=== PATIENT | female | born 1930 | race Two or more races ===

== ENCOUNTER 2018-01-06 14:01 | Observation (INO) | payer MEDICARE, OTHER ==
--- NOTE | 2018-01-06 14:41 | PDOC ---
Attending Attestation - HPI HPI: This patient is an 87 year old female with PMHx of dementia, NIDDM, HTN, hypercholesterolemia, and frequent UTIs who was BIBA from home and presents with her aide & daughter? for altered mental status. noted At baseline her aide reports that patient is talkative and ambulatory however this morning she states that the patient was not responding to questions and seemed out of it. Her aide also notes that patients urine was foul-smelling this morning. Last know well was last night as per patients weekday aide. Denies recent changes in medications. Denies h/o MIs. Denies taking any blood thinners. Surgical Hx: right cataract <Shona Burris - Last Filed: 01/06/18 14:59> - Resident Resident Name: Nancy Zelaya - Physicial Exam PE: 01/06/18 17:14 Agree with resident exam. PAtient is lethargic but arousable with tactile stimulation. Patient awakens when stimulated and mumbles incomprehensible words. Does not follow commands but moves both upper extremities. lungs are clear. abdomen is soft, non tender and non distended. - Critical Care Time Total Critical Care Time: 30 Critical Care Statement: The care of this patient involved high complexity decision making to prevent further life threatening deterioration of the patient 's condition and/or to evaluate & treat vital organ system(s) failure or risk of failure. - Medical Decision Making 01/06/18 17:21 Pt presents to the ED with altered mental status. Differential included sepsis , intracranial mass or bleed, electrolyte disturbance. CT head is negative. LAbs show elevated lactate. Unclear source of infection. Will start broad spectrum antibiotics and admit to medicine. <Tania Santoyo - Last Filed: 01/06/18 17:23>
[2018-01-06 14:56] LABS: BASO % 0.8 % (0-2.0); EOS % 2.6 % (0-4.5); HEMATOCRIT 40.4 % (32.4-45.2); HEMOGLOBIN 13.3 GM/dL (10.7-15.3); LYMPH % 42.2 % (8-40); MCH 30.4 pg (25.7-33.7); MEAN CELL VOLUME 92.2 fl (80-96); MEAN PLT VOLUME 9.7 fl (7.5-11.1); MONO % 11.5 % (3.8-10.2); NEUT % 42.9 % (42.8-82.8); PLATELET COUNT 184 K/MM3 (134-434); RBC 4.38 M/mm3 (3.60-5.2); RDW 14.6 % (11.6-15.6); WHITE BLOOD COUNT 5.5 K/mm3 (4.0-10.0)
[2018-01-06 15:07] LABS: INR 1.04 (0.83-1.09); PROTHROMBIN TIME (PATIENT) 12.3 SEC (9.7-13.0)
[2018-01-06 15:10] LABS: ACTIVATED PTT 27.4 SECONDS (25.2-36.5)
[2018-01-06 15:21] LABS: ALK PHOS 86 U/L (45-117); ANION GAP 6 MMOL/L (8-16); BILIRUBIN,TOTAL 0.3 mg/dL (0.2-1); BLOOD UREA NITROGEN 19 mg/dL (7-18); CALCIUM 9.1 mg/dL (8.5-10.1); CHLORIDE 109 mmol/L (98-107); CO2 26 mmol/L (21-32); CREATININE 0.7 mg/dL (0.55-1.3); GLUCOSE,RANDOM 89 mg/dL (74-106); POTASSIUM 4.3 mmol/L (3.5-5.1); SGOT/AST 18 U/L (15-37); SGPT/ALT 28 U/L (13-61); SODIUM 141 mmol/L (136-145); TOT PROT 6.2 g/dl (6.4-8.2)
--- NOTE | 2018-01-06 15:25 | PDOC ---
History of Present Illness - General Chief Complaint: Altered Mental Status Stated Complaint: Altered Mental Status Time Seen by Provider: 01/06/18 14:33 - History of Present Illness Initial Comments: 01/06/18 15:22 87 year old woman with history of dementia, DM, HTN, HLD and UTIs who presents with altered mental status this AM. Last known well at 2100 yesterday. Per the patient's certified nursing assistant the patent woke up less alert than usual but when she was at the breakfast take she began to stoop over and appeared more lethargic. At baseline the patient can understand conversation but will fluctuate between coherent and incoherent conversation 2/2 to her dementia and at home is typically alert. The daughter who is the health care propxy is at bedside and notes that the patient is not herself and is unresponsive. The patient is DNR but not yet DNI. The certified nursing assistant and daughter deny fevers, any recent illnesses , inclusing nausea Hx of dementia, DM, HTN, HLD, and UTIs Last know well last night at 8/9pm this AM was with aide woke up less alert was stooping over at breakfast table, more lethargic than at baseline, incoherent at baseline patient is more alert and can speak some sentences. Per family baseline for pt fluctuates betweeen coherent and incoherent 2/2 dementia. Patient is DNR. Daughter is health proxy. Daughter at bedside. 1 01/10/18 11:57 Past History - Past Medical History Allergies/Adverse Reactions: Allergies Allergy/AdvReac Type Severity Reaction Status Date / Time No Known Allergies Allergy Verified 02/02/17 12:24 Home Medications: Ambulatory Orders Aspirin [ASA -] 81 mg PO DAILY 02/02/17 Calcium Carbonate [Calcium] 500 mg PO BID 02/02/17 Folic Acid 1 mg PO DAILY 02/02/17 Furosemide [Lasix] 40 mg PO DAILY 02/02/17 Metformin HCl [Metformin HCl ER] 500 mg PO BID 02/02/17 Multivitamin [Poly-Vitamin] 1 tab PO DAILY 02/02/17 Rosuvastatin Calcium [Crestor] 5 mg PO HS 02/02/17 Memantine HCl/Donepezil HCl [Namzaric 28 mg-10 mg Capsule] 1 tab PO DAILY Memantine HCl [Namenda -] 10 mg PO BID tablet 01/09/18 Rosuvastatin [Crestor -] 5 mg PO HS tablet 01/09/18 Valsartan [Diovan] 320 mg PO DAILY tablet 01/09/18 COPD: No Dementia: Yes Diabetes: Yes HTN: Yes Hypercholesterolemia: Yes Psychiatric Problems: Yes (alzheimers) - Immunization History Immunization Up to Date: Yes - Suicide/Smoking/Psychosocial Hx Smoking History: Never smoked Information on smoking cessation initiated: No Hx Alcohol Use: No Drug/Substance Use Hx: No Substance Use Type: None *Physical Exam - Vital Signs Last Vital Signs Temp Pulse Resp BP Pulse Ox 93 H 18 163/115 H 98 01/06/18 14:20 01/06/18 14:20 01/06/18 14:20 01/06/18 14:20 - Physical Exam Comments: Initial presentation: Patient unresponsive, lethargic, incoherent 01/06/18 17:43 Reassessment: R eye coloboma, PERRLA, able to follow all commands, able to speak full sentences and communicate with family, occasionally becomes incoherent. ED Treatment Course - LABORATORY CBC & Chemistry Diagram: 01/07/18 06:45 01/07/18 06:45 - ADDITIONAL ORDERS Additional order review: Laboratory Results 01/06/18 14:51 Sodium 141 Potassium 4.3 Chloride 109 H Carbon Dioxide 26 Anion Gap 6 L BUN 19 H Creatinine 0.7 Creat Clearance w eGFR > 60 Random Glucose 89 Calcium 9.1 Total Bilirubin 0.3 AST 18 ALT 28 Alkaline Phosphatase 86 Creatine Kinase 84 Troponin I < 0.02 Total Protein 6.2 L Albumin 3.0 L TSH 1.18 01/06/18 14:51 RBC 4.38 MCV 92.2 MCHC 33.0 RDW 14.6 MPV 9.7 Neutrophils % 42.9 D Lymphocytes % 42.2 H D Monocytes % 11.5 H Eosinophils % 2.6 Basophils % 0.8 *DC/Admit/Observation/Transfer Diagnosis at time of Disposition: Altered mental status - Discharge Dispostion Disposition: HOME Condition at time of disposition: Stable Decision to Admit order: Yes - Referrals - Patient Instructions - Post Discharge Activity
[2018-01-06 15:29] LABS: URINE APPEARANCE CLOUDY; URINE BILIRUBIN NEGATIVE (<2.0 mg/dL); URINE GLUCOSE (UA) NEGATIVE (NEGATIVE); URINE KETONE NEGATIVE (NEGATIVE); URINE LEUK ESTERASE NEGATIVE (NEGATIVE); URINE NITRITE NEGATIVE (NEGATIVE); URINE PROTEIN NEGATIVE (NEGATIVE); URINE UROBILINOGEN NEGATIVE mg/dL (0.2-1.0)
[2018-01-06 15:30] LABS: URINE COLOR YELLOW
[2018-01-06] MEDS ORDERED: VANCOMYCIN 1 GRAM (PRE-DOCKED) 1,000 MG/250 ML BAG IVPB ONE ×3 (15:58→17:37)
[2018-01-06] MEDS ORDERED: PIPERACILLIN/TAZOB 4.5 GM 4.5 GM in DEXTROSE 5%-WATER 100 ML IVPB ONE (15:59)
[2018-01-06] MEDS ORDERED: SODIUM CHLORIDE 500 ML IV SCH (16:00)
[2018-01-06] MEDS ORDERED: PIPERACILLIN/TAZOB 4.5 GM 4.5 GM/100 ML BAG IVPB ONE (17:37)
--- NOTE | 2018-01-06 19:13 | HP ---
CHIEF COMPLAINT: Altered mental status and unresponsiveness reported by PAPER WRAPPING MACHINE OPERATOR. PCP: Hodan Song HISTORY OF PRESENT ILLNESS: 87 year old female with a PMH of HTN, HLD, dementia, NIDDM, and recurrent UTIs presented to the ED with altered mental status. She was brought via ambulance accompanied by her daughter and PAPER WRAPPING MACHINE OPERATOR. PAPER WRAPPING MACHINE OPERATOR reports that in the morning, patient was was not responding to questions and seemed lethargic, whereas she is usually more responsive and talkative at her baseline. Aid further reported foul smelling urine. Daughter states that patient is now back to baseline. No reported fever, chills, diaphoresis. No reported n/v/d. No reported chest pain, palpitations, or dizziness. ED course notable for: 1. Lactic acid 2.7 --> 2.0 [address] of the head showed no acute process 4. CXR unremarkable 5. Vanc x 1; Zosyn x 1; NS x 500 mL x 1 6. Trop #1 negative Recent Travel: No PAST MEDICAL HISTORY: HTN, HLD, dementia, NIDDM, and recurrent UTIs PAST SURGICAL HISTORY: Cataract Partial hysterectomy Social History: Smoking: No Alcohol: No Drugs: No Allergies No Known Allergies Allergy (Verified 02/02/17 12:24) HOME MEDICATIONS: Home Medications Medication Instructions Recorded Aspirin [ASA -] 81 mg PO DAILY 02/02/17 Calcium Carbonate [Calcium] 500 mg PO DAILY 02/02/17 Folic Acid 1 mg PO DAILY 02/02/17 Furosemide [Lasix] 40 mg PO DAILY 02/02/17 Melatonin 5 mg PO HS 02/02/17 Memantine HCl/Donepezil HCl 10 mg PO DAILY 02/02/17 [Namzaric 7 mg-10 mg Capsule] Metformin HCl [Metformin HCl ER] 500 mg PO BID 02/02/17 Multivitamin [Poly-Vitamin] 1 tab PO DAILY 02/02/17 Rosuvastatin Calcium [Crestor] 5 mg PO DAILY 02/02/17 Sulfamethoxazole/Trimethoprim 1 tab PO BID #14 tablet 02/02/17 [Bactrim Ds -] Valsartan [Diovan] 350 mg PO DAILY 02/02/17 REVIEW OF SYSTEMS CONSTITUTIONAL: +Lethargic, AMS Absent: fever, chills, diaphoresis, generalized weakness, malaise, loss of appetite, weight change HEENT: Present: Nasal congestion Absent: throat pain, throat swelling, difficulty swallowing, mouth swelling, ear pain, eye pain, visual changes CARDIOVASCULAR: Absent: chest pain, syncope, palpitations, irregular heart rate, lightheadedness , peripheral edema RESPIRATORY: Absent: cough, shortness of breath, dyspnea with exertion, orthopnea, wheezing, stridor, hemoptysis GASTROINTESTINAL: Absent: abdominal pain, abdominal distension, nausea, vomiting, diarrhea, constipation, melena, hematochezia GENITOURINARY: Foul-smelling urine Absent: dysuria, frequency, urgency, hesitancy, hematuria, flank pain, genital pain MUSCULOSKELETAL: Absent: myalgia, arthralgia, joint swelling, back pain, neck pain SKIN: Absent: rash, itching, pallor HEMATOLOGIC/IMMUNOLOGIC: Absent: easy bleeding, easy bruising, lymphadenopathy, frequent infections ENDOCRINE: Absent: unexplained weight gain, unexplained weight loss, heat intolerance, cold intolerance NEUROLOGIC: Present: mental status change this AM Absent: headache, focal weakness or paresthesias, dizziness, unsteady gait, seizure, mental status changes, bladder or bowel incontinence PSYCHIATRIC: Absent: anxiety, depression, suicidal or homicidal ideation, hallucinations. PHYSICAL EXAMINATION Vital Signs - 24 hr 01/06/18 01/06/18 01/06/18 14:20 14:30 17:32 Temperature 98.2 F 98.4 F Pulse Rate 93 H Respiratory 18 Rate Blood Pressure 163/115 H O2 Sat by Pulse 98 Oximetry (%) 01/06/18 17:33 Temperature 98.4 F Pulse Rate Respiratory Rate Blood Pressure O2 Sat by Pulse Oximetry (%) GENERAL: Frail, alert, A&Ox1 to person only, in no acute distress. HEAD: Normal with no signs of trauma. EYES: Arcus senilis b/l, pupils equal, round and reactive to light, extraocular movements intact, sclera anicteric, conjunctiva clear. No lid lag. EARS, NOSE, THROAT: Ears normal, nares with clear rhinorrhea, oropharynx clear without exudates. Moist mucous membranes. NECK: Normal range of motion, supple without lymphadenopathy, JVD, or masses. LUNGS: Mouth breathing, breath sounds equal, clear to auscultation bilaterally, no crackles. No accessory muscle use. HEART: Regular rate and rhythm, normal S1 and S2 without murmur, rub or gallop. ABDOMEN: Soft, nontender, softly distended, normoactive bowel sounds, no guarding, no rebound, no masses. No hepatomegaly or splenomegaly. MUSCULOSKELETAL: Normal range of motion at all joints. No bony deformities or tenderness. No CVA tenderness. UPPER EXTREMITIES: 2+ pulses, warm, well-perfused. No cyanosis. No clubbing. No peripheral edema. LOWER EXTREMITIES: 2+ pulses, warm, well-perfused. No calf tenderness. No peripheral edema. NEUROLOGICAL: Cranial nerves II-XII intact. Gait not observed PSYCHIATRIC: Unable to follow commands, pleasant, good eye contact. Appropriate mood and affect. SKIN: Warm, dry, normal turgor, no rashes or lesions noted, normal capillary refill. Laboratory Results - last 24 hr 01/06/18 01/06/18 01/06/18 14:45 14:51 14:51 WBC 5.5 RBC 4.38 Hgb 13.3 Hct 40.4 MCV 92.2 MCH 30.4 MCHC 33.0 RDW 14.6 Plt Count 184 D MPV 9.7 Absolute Neuts (auto) 2.4 Neutrophils % 42.9 D Lymphocytes % 42.2 H D Monocytes % 11.5 H Eosinophils % 2.6 Basophils % 0.8 Nucleated RBC % 0 PT with INR 12.30 INR 1.04 PTT (Actin FS) 27.4 Sodium 141 Potassium 4.3 Chloride 109 H Carbon Dioxide 26 Anion Gap 6 L BUN 19 H Creatinine 0.7 Creat Clearance w eGFR > 60 Random Glucose 89 Lactic Acid Calcium 9.1 Total Bilirubin 0.3 AST 18 ALT 28 Alkaline Phosphatase 86 Creatine Kinase 84 Troponin I < 0.02 Total Protein 6.2 L Albumin 3.0 L TSH 1.18 Urine Color Urine Appearance Urine pH Ur Specific [place] Urine Protein Urine Glucose (UA) Urine Ketones Urine Blood Urine Nitrite Urine Bilirubin Urine Urobilinogen Ur Leukocyte Esterase 01/06/18 01/06/18 14:51 15:14 WBC RBC Hgb Hct MCV MCH MCHC RDW Plt Count MPV Absolute Neuts (auto) Neutrophils % Lymphocytes % Monocytes % Eosinophils % Basophils % Nucleated RBC % PT with INR INR PTT (Actin FS) Sodium Potassium Chloride Carbon Dioxide Anion Gap BUN Creatinine Creat Clearance w eGFR Random Glucose Lactic Acid 2.7 H* Calcium Total Bilirubin AST ALT Alkaline Phosphatase Creatine Kinase Troponin I Total Protein Albumin TSH Urine Color Yellow Urine Appearance Cloudy Urine pH 5.0 Ur Specific [place] 1.029 Urine Protein Negative Urine Glucose (UA) Negative Urine Ketones Negative Urine Blood Negative Urine Nitrite Negative Urine Bilirubin Negative Urine Urobilinogen Negative Ur Leukocyte Esterase Negative ASSESSMENT/PLAN: 87 year old female with a PMH of HTN, HLD, dementia, NIDDM, and recurrent UTIs presented to the ED with altered mental status. Placed on observation for near- syncopal episode. Near Syncope --TIA vs CVA: initial CT shows no acute process, repeat in 12 hrs, hold ASA pending repeat CT. Carotid US ordered. MRI and neuro consult ordered. --R/o cardiac dysrhythmia: ECG shows T wave abnormality unchanged from 01/2017. Telemetry monitoring. --R/o ACS; Trop #1 negative, 2 pending, CXR unremarkable, echocardiogram and serial ECGs ordered. --Possible hypoglycemic episode; glucose WNL on admission. --R/o orthostasis; check orthostatics Lactic Acidosis --Resolved after IV fluids. HTN --BP stable --Not on antihypertensives HLD --Continue Crestor NIDDM --Novolog SS coverage, monitor glucose Dementia --Continue Namenda and Aricept Recurrent UTIs --Afebrile, no leukocytosis, no pyuria, no reported recent abx use --Will observe off antibiotics FEN --PO intake adequate --Electrolytes replete as indicated --Diabetic diet DVT Prophylaxis --Hold chemical prophylaxis until repeat CT. Dispo: pt currently requires further inpatient care. DNR Visit type - Emergency Visit Emergency Visit: Yes ED Registration Date: 01/06/18 Care time: The patient presented to the Emergency Department on the above date and was hospitalized for further evaluation of their emergent condition. - New Patient This patient is new to me today: Yes Date on this admission: 01/06/18 - Critical Care Critical Care patient: No
[2018-01-06] MEDS: ROSUVASTATIN CA 5 MG TABLET (FP) PO SCH (22:23)
[2018-01-06] MEDS: INSULIN SLIDING SCALE (NOVOLOG) 1 VIAL SQ SCH (22:23)
[2018-01-07] MEDS: INSULIN SLIDING SCALE (NOVOLOG) 1 VIAL SQ SCH ×4 (06:18→22:26)
[2018-01-07 07:27] LABS: EOS % 3.9 % (0-4.5); HEMATOCRIT 39.8 % (32.4-45.2); HEMOGLOBIN 13.2 GM/dL (10.7-15.3); LYMPH % 34.7 % (8-40); MCH 30.2 pg (25.7-33.7); MCHC 33.2 g/dl (32.0-36.0); MEAN CELL VOLUME 90.9 fl (80-96); MEAN PLT VOLUME 9.2 fl (7.5-11.1); MONO % 7.2 % (3.8-10.2); NEUT % 53.2 % (42.8-82.8); PLATELET COUNT 152 K/MM3 (134-434); RBC 4.38 M/mm3 (3.60-5.2); RDW 14.1 % (11.6-15.6); WHITE BLOOD COUNT 5.4 K/mm3 (4.0-10.0)
[2018-01-07 08:39] LABS: ALBUMIN 3.1 g/dl (3.4-5.0); ALK PHOS 80 U/L (45-117); ANION GAP 8 MMOL/L (8-16); BILIRUBIN,TOTAL 0.5 mg/dL (0.2-1); BLOOD UREA NITROGEN 12 mg/dL (7-18); CALCIUM 8.6 mg/dL (8.5-10.1); CHLORIDE 107 mmol/L (98-107); CO2 28 mmol/L (21-32); CREATININE 0.6 mg/dL (0.55-1.3); GLUCOSE,RANDOM 135 mg/dL (74-106); MAGNESIUM 2.1 mg/dL (1.8-2.4); SGOT/AST 21 U/L (15-37); SGPT/ALT 25 U/L (13-61); SODIUM 143 mmol/L (136-145); TOT PROT 6.1 g/dl (6.4-8.2)
[2018-01-07] MEDS: FUROSEMIDE 40 MG TABLET (FP) PO SCH (09:46)
[2018-01-07] MEDS: MEMANTINE HCL 10 MG TABLET (FP) PO SCH ×2 (09:46→22:26)
[2018-01-07] MEDS: DONEPEZIL HCL 10 MG TABLET (FP) PO SCH (09:47)
[2018-01-07] MEDS ORDERED: PATIENT'S OWN MEDICATION (NON-FORMULARY) (Memantine Hcl/Donepezil Hcl [Namzaric 28 Mg-10 M PO SCH (10:00)
[2018-01-07] MEDS ORDERED: CEFTRIAXONE 1 GM in DEXTROSE 5%-WATER - 100 ML IVPB SCH (10:00)
[2018-01-07] MEDS ORDERED: ASPIRIN 81 MG CHEWABLE TABLETS PO SCH (10:00)
--- NOTE | 2018-01-07 10:27 | EKG ---
Test Reason : Blood Pressure : / mmHG Vent. Rate : 081 BPM Atrial Rate : 081 BPM P-R Int : 136 ms QRS Dur : 070 ms QT Int : 336 ms P-R-T Axes : 000 002 021 degrees QTc Int : 390 ms NORMAL SINUS RHYTHM MINIMAL VOLTAGE CRITERIA FOR LVH, MAY BE NORMAL VARIANT T WAVE ABNORMALITY, CONSIDER LATERAL ISCHEMIA ABNORMAL ECG WHEN COMPARED WITH ECG OF 02-FEB-2017 14:20, NONSPECIFIC T WAVE ABNORMALITY HAS REPLACED INVERTED T WAVES IN ANTERIOR LEADS Confirmed by JARON GEE MD ([id number]) on 01/07/2018 10:27:08 AM Referred By: Confirmed By:JARON GEE MD
[2018-01-07] MEDS ORDERED: ACETAMINOPHEN 325 MG TABLET (FP) PO PRN (11:04)
--- NOTE | 2018-01-07 11:08 | PN ---
Progress Note, Physician History of Present Illness: pt seen/ examined chart reviewed awake. aid at bedside anxious - Current Medication List Current Medications: Active Medications Acetaminophen (Tylenol -) 650 mg PO Q6H PRN PRN Reason: PAIN LEVEL 1-5 Donepezil HCl (Aricept -) 10 mg PO DAILY [facility] Last Admin: 01/07/18 09:47 Dose: 10 mg Furosemide (Lasix -) 40 mg PO DAILY [facility] Last Admin: 01/07/18 09:46 Dose: 40 mg Insulin Aspart (Novolog Vial Sliding Scale -) 1 vial SQ ACHS [facility]; Protocol Last Admin: 01/07/18 06:18 Dose: Not Given Memantine (Namenda -) 10 mg PO BID [facility] Last Admin: 01/07/18 09:46 Dose: 10 mg Rosuvastatin Calcium (Crestor -) 5 mg PO HS [facility] Last Admin: 01/06/18 22:23 Dose: 5 mg - Objective Vital Signs: Vital Signs Temperature 98.4 F 01/07/18 06:26 Pulse Rate 78 01/07/18 06:26 Respiratory Rate 20 01/07/18 06:26 Blood Pressure 162/75 01/07/18 06:26 O2 Sat by Pulse Oximetry (%) 96 01/07/18 05:27 Constitutional: Yes: Anxious Eyes: Yes: Other (perrla) Neck: Yes: Supple Cardiovascular: Yes: Regular Rate and Rhythm Respiratory: Yes: CTA Bilaterally Gastrointestinal: Yes: Soft Edema: No Neurological: Yes: Other (non focal- no charlene moves all extremities) Labs: CBC, BMP 01/07/18 06:45 01/07/18 06:45 INR, PTT INR 1.04 (0.83-1.09) 01/06/18 14:45 Problem List - Problems (1) Dementia Code(s): F03.90 - UNSPECIFIED DEMENTIA WITHOUT BEHAVIORAL DISTURBANCE (2) Altered mental status Code(s): R41.82 - ALTERED MENTAL STATUS, UNSPECIFIED Assessment/Plan Doubt cva Likely worsening of dementia continue present care tylenol prn u/a -ve u/c - pending got abx consult neurology aid reports pt eats very well will start on feeding pt is dnr will follow discussed with nursing staff
--- NOTE | 2018-01-07 11:41 | CON.NEURO ---
Consult Consult Specialty:: Yovani Referred by:: Hospitalist - History of Present Illness History of Present Illness: 87 years old woman with PMH CAd OA Dementia neuropathy DM came in with alerted metal status history of the present illness I interviewed the patient on the floor in the presence of her daughter. Patient was slightly confused no report of any recent travel. Patient was sitting eating dinner. No report of any significant alteration in her diabetes level. Patient was complaining of mild numbness in the legs no headache no chest pain or palpitation. Patient is DNR noted - History Source History Provided By: Family Member, Medical Record Limitations to Obtaining History: Clinical Condition - Past Medical History ...: No - Alcohol/Substance Use Hx Alcohol Use: No - Smoking History Smoking history: Never smoked Home Medications - Allergies Allergies/Adverse Reactions: Allergies Allergy/AdvReac Type Severity Reaction Status Date / Time No Known Allergies Allergy Verified 02/02/17 12:24 - Home Medications Home Medications: Ambulatory Orders Aspirin [ASA -] 81 mg PO DAILY 02/02/17 Calcium Carbonate [Calcium] 500 mg PO BID 02/02/17 Folic Acid 1 mg PO DAILY 02/02/17 Furosemide [Lasix] 40 mg PO DAILY 02/02/17 Metformin HCl [Metformin HCl ER] 500 mg PO BID 02/02/17 Multivitamin [Poly-Vitamin] 1 tab PO DAILY 02/02/17 Rosuvastatin Calcium [Crestor] 5 mg PO HS 02/02/17 Memantine HCl/Donepezil HCl [Namzaric 28 mg-10 mg Capsule] 1 tab PO DAILY Family Disease History - Family Disease History Family History: Unable to Obtain Review of Systems - Review of Systems Constitutional: reports: No Symptoms Eyes: reports: No Symptoms Physical Exam-Neuro Vital Signs: Vital Signs Temperature 98.4 F 01/07/18 06:26 Pulse Rate 78 01/07/18 06:26 Respiratory Rate 20 01/07/18 06:26 Blood Pressure 162/75 01/07/18 06:26 O2 Sat by Pulse Oximetry (%) 96 01/07/18 05:27 Constitutional: Yes: Well Nourished Neck: Yes: WNL Labs: CBC, BMP 01/07/18 06:45 01/07/18 06:45 INR, PTT INR 1.04 (0.83-1.09) 01/06/18 14:45 - Neuro Exam Level Of Consciousness: Yes: Oriented to Person, Oriented to Place Eyes: Yes: PERRLA Speech: WNL Dominant Hand: Right Cranial Nerves II-XII Intact: Yes Gag: Present DTR's: 1+ Left Bicep, 1+ Right Bicep, 1+ Left Brachioradialis, 1+ Right Brachioradialis Response to light touch: Normal Response to pain prick: Normal Response to temperature: Normal Response to vibration: Normal Motor Strength: 3/5: Left Arm, Right Arm, Left Leg, Right Leg Gait: Deferred Imaging - Results Cat Scan: Image Reviewed Problem List - Problems (1) Altered mental status Assessment/Plan: resolving toxic metabolic encephalopathy Rule out seizure 1. IV fluids 2. Sepsis workup 3. Blood work 4. DVT prophylaxis 5. EEG Thank you very much for referring this patient for neurological consultation Code(s): R41.82 - ALTERED MENTAL STATUS, UNSPECIFIED
[2018-01-07 12:35] LABS: GAMMA GLUTAMYL TRANSPEPTIDASE 22 U/L (5-85)
[2018-01-07] MEDS: VALSARTAN 160 MG TABLET (UD) PO SCH (12:57)
[2018-01-07] MEDS ORDERED: PT OWN MED DRAWER 7, Y5N ONE (20:19)
[2018-01-07] MEDS: HEPARIN NA (PORCINE) 5,000 UNITS/ML 1ML VIAL SQ SCH (22:27)
[2018-01-07] MEDS: ROSUVASTATIN CA 5 MG TABLET (FP) PO SCH (22:27)
[2018-01-08] MEDS: INSULIN SLIDING SCALE (NOVOLOG) 1 VIAL SQ SCH ×4 (06:40→21:27)
[2018-01-08] MEDS ORDERED: INSULIN (NOVOLOG) ASPART 100 UNITS/ML 10ML VIAL ONE (07:01)
[2018-01-08] MEDS: MEMANTINE HCL 10 MG TABLET (FP) PO SCH (09:34)
[2018-01-08] MEDS: VALSARTAN 160 MG TABLET (UD) PO SCH (09:34)
[2018-01-08] MEDS: FUROSEMIDE 40 MG TABLET (FP) PO SCH (09:34)
[2018-01-08] MEDS: HEPARIN NA (PORCINE) 5,000 UNITS/ML 1ML VIAL SQ SCH (09:35)
[2018-01-08] MEDS: DONEPEZIL HCL 10 MG TABLET (FP) PO SCH (09:35)
--- NOTE | 2018-01-08 10:54 | EKG ---
Test Reason : Blood Pressure : / mmHG Vent. Rate : 074 BPM Atrial Rate : 074 BPM P-R Int : 136 ms QRS Dur : 074 ms QT Int : 364 ms P-R-T Axes : -36 012 074 degrees QTc Int : 404 ms UNUSUAL P AXIS, POSSIBLE ECTOPIC ATRIAL RHYTHM T WAVE ABNORMALITY, CONSIDER LATERAL ISCHEMIA ABNORMAL ECG Confirmed by JARON GEE MD ([id number]) on 01/08/2018 10:53:45 AM Referred By: Parker GAMEZ Confirmed By:JARON GEE MD
[2018-01-08] MEDS ORDERED: CEFTRIAXONE 1 GM in DEXTROSE 5%-WATER - 100 ML IVPB SCH (12:00)
--- NOTE | 2018-01-08 12:18 | PN ---
Progress Note (short form) - Note Progress Note: pt awake/ comfortable no distress neurology consult noted/ appreciated afebrile +ve u/c Vital Signs Temp 98.5 F 01/08/18 06:55 Pulse 87 01/08/18 06:55 Resp 20 01/08/18 06:55 BP 151/77 01/08/18 06:55 Pulse Ox 96 01/07/18 21:00 Intake & Output 01/07/18 01/08/18 01/08/18 23:59 11:59 23:59 Intake Total 300 Balance 300 Weight 151 lb 8 oz Intake: IVPB 100 Oral 200 Other: Voiding Method Diaper # Unmeasured Voids Void 2 Weight Measurement Method Built in [facility] Active Medications Acetaminophen (Tylenol -) 650 mg PO Q6H PRN PRN Reason: PAIN LEVEL 1-5 Donepezil HCl (Aricept -) 10 mg PO DAILY [facility] Last Admin: 01/08/18 09:35 Dose: 10 mg Furosemide (Lasix -) 40 mg PO DAILY [facility] Last Admin: 01/08/18 09:34 Dose: 40 mg Heparin Sodium (Porcine) (Heparin -) 5,000 unit SQ BID [facility] Last Admin: 01/08/18 09:35 Dose: 5,000 unit Ceftriaxone Sodium 1 gm/ (Dextrose) 100 mls @ 200 mls/hr IVPB DAILY [facility]; Protocol Insulin Aspart (Novolog Vial Sliding Scale -) 1 vial SQ ACHS [facility]; Protocol Last Admin: 01/08/18 06:40 Dose: Not Given Memantine (Namenda -) 10 mg PO BID [facility] Last Admin: 01/08/18 09:34 Dose: 10 mg Rosuvastatin Calcium (Crestor -) 5 mg PO HS [facility] Last Admin: 01/07/18 22:27 Dose: 5 mg Valsartan (Diovan -) 320 mg PO DAILY [facility] Last Admin: 01/08/18 09:34 Dose: 320 mg CBC, BMP 01/07/18 06:45 01/07/18 06:45 Microbiology 01/06/18 15:17 Urine Culture - Final Urine - Urine - Catheterized Enterococcus Faecalis Physical Exam Constitutional: Yes: Awake/ comfortable Eyes: Yes: Other (No icterus) Neck: Yes: Supple/ no jvd Cardiovascular: Yes: Regular Rate and Rhythm Respiratory: Yes: CTA Bilaterally Gastrointestinal: Yes: Soft/ non tender Edema: No Neurological: Yes: Other (non focal- no charlene moves all extremities). calm Assessment/Plan Doubt cva Likely worsening of dementia Uti toxic metabolic encephalopathy continue present care tylenol prn abx pt pt is dnr if stable - consider d/c tomorrow Discussed with pts daughter also will follow discussed with nursing staff also Problem List - Problems (1) Dementia Code(s): F03.90 - UNSPECIFIED DEMENTIA WITHOUT BEHAVIORAL DISTURBANCE (2) Altered mental status Code(s): R41.82 - ALTERED MENTAL STATUS, UNSPECIFIED
[2018-01-08] MEDS ORDERED: CEFTRIAXONE 1 GM in DEXTROSE 5%-WATER - 50 ML IVPB SCH (12:43)
[2018-01-08] MEDS ORDERED: DEXTROSE 5%-WATER - 50 ML IVPB ONE (12:47)
[2018-01-08] MEDS ORDERED: cefTRIAXone SODIUM 1 GM VIAL ONE (12:47)
[2018-01-08 13:25] VITALS: BMI 28.5
[2018-01-08] MEDS ORDERED: PT OWN MED DRAWER 7, Y5N ONE (22:38)
[2018-01-09] MEDS: MEMANTINE HCL 10 MG TABLET (FP) PO SCH ×2 (00:26→11:01)
[2018-01-09] MEDS: HEPARIN NA (PORCINE) 5,000 UNITS/ML 1ML VIAL SQ SCH ×2 (00:27→11:02)
[2018-01-09] MEDS: ROSUVASTATIN CA 5 MG TABLET (FP) PO SCH (00:27)
[2018-01-09] MEDS: INSULIN SLIDING SCALE (NOVOLOG) 1 VIAL SQ SCH ×3 (06:56→17:32)
--- NOTE | 2018-01-09 09:35 | PN ---
Progress Note (short form) - Note Progress Note: pt seen/ examined just came back from echo/ eeg overnight has no complains calm. afebrile Vital Signs Temp 98.5 F 01/09/18 06:00 Pulse 98 H 01/09/18 06:00 Resp 20 01/09/18 06:00 BP 139/87 01/09/18 06:00 Pulse Ox 96 01/08/18 13:00 Intake & Output 01/08/18 01/08/18 01/09/18 11:59 23:59 11:59 Intake Total 600 Balance 600 Weight 151 lb 8 oz 151 lb 151 lb 1.6 oz Intake: IVPB 100 Oral 500 Other: Voiding Method Diaper Diaper # Unmeasured Voids Void 1 1 Bowel Movement Yes: 1 Height 5 ft 1 in Body Mass Index (BMI) 28.5 Weight Measurement Method Built in Bedscale Built in Bedscale Active Medications Acetaminophen (Tylenol -) 650 mg PO Q6H PRN PRN Reason: PAIN LEVEL 1-5 Donepezil HCl (Aricept -) 10 mg PO DAILY [facility] Last Admin: 01/08/18 09:35 Dose: 10 mg Furosemide (Lasix -) 40 mg PO DAILY [facility] Last Admin: 01/08/18 09:34 Dose: 40 mg Heparin Sodium (Porcine) (Heparin -) 5,000 unit SQ BID [facility] Last Admin: 01/09/18 00:27 Dose: 5,000 unit Ceftriaxone Sodium 1 gm/ (Dextrose) 50 mls @ 200 mls/hr IVPB DAILY [facility]; Protocol Insulin Aspart (Novolog Vial Sliding Scale -) 1 vial SQ ACHS [facility]; Protocol Last Admin: 01/09/18 06:56 Dose: Not Given Memantine (Namenda -) 10 mg PO BID [facility] Last Admin: 01/09/18 00:26 Dose: 10 mg Rosuvastatin Calcium (Crestor -) 5 mg PO HS [facility] Last Admin: 01/09/18 00:27 Dose: 5 mg Valsartan (Diovan -) 320 mg PO DAILY [facility] Last Admin: 01/08/18 09:34 Dose: 320 mg CBC, BMP 01/07/18 06:45 01/07/18 06:45 Microbiology 01/06/18 15:17 Urine Culture - Final Urine - Urine - Catheterized Enterococcus Faecalis Physical Exam. Constitutional: Yes: Awake/ comfortable Eyes: Yes: Other (No icterus) Neck: Yes: Supple/ no jvd Cardiovascular: Yes: Regular Rate and Rhythm Respiratory: Yes: CTA Bilaterally Gastrointestinal: Yes: Soft/ non tender Edema: No Neurological: Yes: Other (non focal- no charlene moves all extremities). calm Assessment/Plan Doubt cva Likely worsening of dementia Uti toxic metabolic encephalopathy continue present care tylenol prn abx overall stable ekg -- 01/07/18 - reviewed-- unusual P axis will consult cardiology will follow echo also will follow Problem List - Problems (1) Dementia Code(s): F03.90 - UNSPECIFIED DEMENTIA WITHOUT BEHAVIORAL DISTURBANCE (2) Altered mental status Code(s): R41.82 - ALTERED MENTAL STATUS, UNSPECIFIED
[2018-01-09] MEDS ORDERED: DEXTROSE 5%-WATER - 50 ML IVPB ONE (10:57)
[2018-01-09] MEDS ORDERED: cefTRIAXone SODIUM 1 GM VIAL ONE (10:57)
[2018-01-09] MEDS: VALSARTAN 160 MG TABLET (UD) PO SCH (11:01)
[2018-01-09] MEDS: FUROSEMIDE 40 MG TABLET (FP) PO SCH (11:01)
[2018-01-09] MEDS: DONEPEZIL HCL 10 MG TABLET (FP) PO SCH (11:01)
--- NOTE | 2018-01-09 11:08 | ECHO ---
Name: THEODORE CHILEL Exam:Adult Echocardiogram Study Date: 01/09/2018 08:07 AM Age: 87 yrs Reason For Study: SYNCOPE Height: 61 in Weight: 159 lb BSA: 1.7 m2 MMode/2D Measurements & Calculations IVSd: 0.97 cm Ao root diam: 3.4 cm LVIDd: 4.6 cm LA dimension: 3.9 cm LVIDs: 2.7 cm ACS: 1.6 cm LVPWd: 0.70 cm IVSs: 1.1 cm LVPWs: 0.91 cm EDV(Teich): 99.0 ml ESV(Teich): 27.0 ml Doppler Measurements & Calculations MV E max germán: 42.0 cm/sec Ao V2 max: 105.1 cm/sec MV A max germán: 65.2 cm/sec Ao max P.4 mmHg MV E/A: 0.64 Ao V2 mean: 73.4 cm/sec Ao mean P.4 mmHg Ao V2 VTI: 20.1 cm TR max germán: 217.5 cm/sec Med Peak E' Germán: 5.2 cm/sec TR max P.0 mmHg Med E/e': 8.1 Lat Peak E' Germán: 4.8 cm/sec Lat E/e': 8.7 Procedure A complete two-dimensional transthoracic echocardiogram was performed (2D, M-mode, Doppler and color flow Doppler). Technically limited study. Left Ventricle The left ventricle is normal in size. Left ventricular systolic function is normal. Ejection Fraction = 65- 70%. E/A reversal consistent with but not diagnostic of poor LV compliance. No regional wall motion abnormalities noted. Right Ventricle The right ventricle is normal size. The right ventricular systolic function is normal. Atria The left atrial size is normal. Right atrial size is normal. Mitral Valve There is mild mitral annular calcification. There is no mitral regurgitation noted. Tricuspid Valve The tricuspid valve is normal in structure and function. No tricuspid regurgitation. Right ventricula r systolic pressure is normal. Aortic Valve There is mild aortic sclerosis.;. No aortic regurgitation is present. Pulmonic Valve The pulmonic valve is not well visualized. Great Vessels The aortic root is normal size. Pericardium/Pleura There is no pericardial effusion. Interpretation Summary Technically limited study The left ventricle is normal in size. Left ventricular systolic function is normal. No regional wall motion abnormalities noted. Ejection Fraction = 65-70%. E/A reversal consistent with but not diagnostic of poor LV compliance The right ventricular systolic function is normal. The left atrial size is normal. Right atrial size is normal. There is mild mitral annular calcification. There is mild aortic sclerosis.; No significant valvular regurgitations There is no pericardial effusion. Previous study is not available for comparison Shine Eason MD 01/09/2018 11:07 AM
[2018-01-09] MEDS ORDERED: INSULIN (NOVOLOG) ASPART 100 UNITS/ML 10ML VIAL ONE (11:35)
--- NOTE | 2018-01-09 16:22 | CON.CARD ---
Cardiology Consult (text) - Consultation Consultation Note: cc: ams hpi: 87 f hx dementia, dm, htn, hld, here with ams. No cp, sob palps dizzy loc pnd orthopnea le edema. Found to have uti, on abx. Pt has no complaints. Cardio eval requested for abnl ecg. pmh: per hpi psh: cataract surgery social: no tob fam: nc ros: per hpi; no nvd gib hematuria dysuria abd pain cough merino meds: Home Medications Medication Instructions Recorded Aspirin [ASA -] 81 mg PO DAILY 02/02/17 Calcium Carbonate [Calcium] 500 mg PO BID 02/02/17 Folic Acid 1 mg PO DAILY 02/02/17 Furosemide [Lasix] 40 mg PO DAILY 02/02/17 Metformin HCl [Metformin HCl ER] 500 mg PO BID 02/02/17 Multivitamin [Poly-Vitamin] 1 tab PO DAILY 02/02/17 Rosuvastatin Calcium [Crestor] 5 mg PO HS 02/02/17 Memantine HCl/Donepezil HCl 1 tab PO DAILY 01/06/18 [Namzaric 28 mg-10 mg Capsule] pe: Vital Signs Period Temp Pulse Resp BP Sys/Moore Pulse Ox Last 24 Hr 97.6 F-98.5 F 76-98 18-20 132-144/61-88 96 nad no jvd rrr s1s2 no mrg cta bl nl eff awake alert appropriate abd nd nd pos bs no jaundice diaphoresis pos dp pt no carotid bruits no le e/c/c Laboratory Last Values WBC 5.4 K/mm3 (4.0-10.0) 01/07/18 06:45 RBC 4.38 M/mm3 (3.60-5.2) 01/07/18 06:45 Hgb 13.2 GM/dL (10.7-15.3) 01/07/18 06:45 Hct 39.8 % (32.4-45.2) 01/07/18 06:45 MCV 90.9 fl (80-96) 01/07/18 06:45 MCH 30.2 pg (25.7-33.7) 01/07/18 06:45 MCHC 33.2 g/dl (32.0-36.0) 01/07/18 06:45 RDW 14.1 % (11.6-15.6) 01/07/18 06:45 Plt Count 152 K/MM3 (134-434) 01/07/18 06:45 MPV 9.2 fl (7.5-11.1) 01/07/18 06:45 Absolute Neuts (auto) 2.9 K/mm3 (1.5-8.0) 01/07/18 06:45 Neutrophils % 53.2 % (42.8-82.8) D 01/07/18 06:45 Lymphocytes % 34.7 % (8-40) 01/07/18 06:45 Monocytes % 7.2 % (3.8-10.2) 01/07/18 06:45 Eosinophils % 3.9 % (0-4.5) 01/07/18 06:45 Basophils % 1.0 % (0-2.0) 01/07/18 06:45 Nucleated RBC % 0 % (0-0) 01/07/18 06:45 ESR 15 mm/hr (0-30) 01/08/18 08:00 PT with INR 12.30 SEC (9.7-13.0) 01/06/18 14:45 INR 1.04 (0.83-1.09) 01/06/18 14:45 PTT (Actin FS) 27.4 SECONDS (25.2-36.5) 01/06/18 14:45 Sodium 143 mmol/L (136-145) 01/07/18 06:45 Potassium 4.0 mmol/L (3.5-5.1) 01/07/18 06:45 Chloride 107 mmol/L (98-107) 01/07/18 06:45 Carbon Dioxide 28 mmol/L (21-32) 01/07/18 06:45 Anion Gap 8 MMOL/L (8-16) 01/07/18 06:45 BUN 12 mg/dL (7-18) 01/07/18 06:45 Creatinine 0.6 mg/dL (0.55-1.3) 01/07/18 06:45 Creat Clearance w eGFR > 60 (>60) 01/07/18 06:45 POC Glucometer 179 UNITS (80-120) 01/09/18 11:38 Random Glucose 135 mg/dL (74-106) H 01/07/18 06:45 Hemoglobin A1c % 7.6 % (4.2-6.3) H 01/08/18 08:00 Lactic Acid 2.0 mmol/L (0.4-2.0) 01/06/18 19:25 Calcium 8.6 mg/dL (8.5-10.1) 01/07/18 06:45 Phosphorus 4.0 mg/dL (2.5-4.9) 01/07/18 06:45 Magnesium 2.1 mg/dL (1.8-2.4) 01/07/18 06:45 Total Bilirubin 0.5 mg/dL (0.2-1) 01/07/18 06:45 GGT 22 U/L (5-85) 01/07/18 06:45 AST 21 U/L (15-37) 01/07/18 06:45 ALT 25 U/L (13-61) 01/07/18 06:45 Alkaline Phosphatase 80 U/L (45-117) 01/07/18 06:45 Creatine Kinase 84 IU/L (26-192) 01/06/18 14:51 Troponin I < 0.02 ng/ml (0.00-0.05) 01/07/18 06:45 C-Reactive Protein < 0.3 MG/DL (0.00-0.3) 01/07/18 06:45 Total Protein 6.1 g/dl (6.4-8.2) L 01/07/18 06:45 Albumin 3.1 g/dl (3.4-5.0) L 01/07/18 06:45 Vitamin B12 478 pg/ml (193-986) 01/07/18 06:45 TSH 0.67 uIU/ml (0.358-3.74) 01/08/18 08:00 Urine Color Yellow 01/06/18 15:14 Urine Appearance Cloudy 01/06/18 15:14 Urine pH 5.0 (5.0-8.0) 01/06/18 15:14 Ur Specific [place] 1.029 (1.010-1.035) 01/06/18 15:14 Urine Protein Negative (NEGATIVE) 01/06/18 15:14 Urine Glucose (UA) Negative (NEGATIVE) 01/06/18 15:14 Urine Ketones Negative (NEGATIVE) 01/06/18 15:14 Urine Blood Negative (NEGATIVE) 01/06/18 15:14 Urine Nitrite Negative (NEGATIVE) 01/06/18 15:14 Urine Bilirubin Negative (<2.0 mg/dL) 01/06/18 15:14 Urine Urobilinogen Negative mg/dL (0.2-1.0) 01/06/18 15:14 Ur Leukocyte Esterase Negative (NEGATIVE) 01/06/18 15:14 RPR Titer Nonreactive (NONREACTIVE) 01/08/18 08:00 echo 12/2017: nl lv/rv, no sig valve path ecg: sr, nl intervals, lat twis, no st changes, no sig change from 01/2017 ecg cxr: clear lungs a/p: 87 f hx dementia, dm, htn, hld, here with ams. ams: -likely related to uti and dementia htn: -controlled on arb hld: -cont statin abnl ecg: -ecg reviewed, appears to be sinus rhythm with lateral twis, no sig change from 2017 ecg. echo unremarkable. cardiac guzman stable for dc
--- NOTE | 2018-01-09 16:48 | DS ---
Physical Examination Vital Signs: Vital Signs Temperature 98.2 F 01/09/18 15:29 Pulse Rate 94 H 01/09/18 15:29 Respiratory Rate 18 01/09/18 15:29 Blood Pressure 144/80 01/09/18 15:29 O2 Sat by Pulse Oximetry (%) 96 01/09/18 13:00 Findings/Remarks: see today progress note Labs: CBC, BMP 01/07/18 06:45 01/07/18 06:45 Discharge Summary Reason For Visit: AMS Current Active Problems Dementia (Acute) Hospital Course: 87 year old female with a PMH of HTN, HLD, dementia, NIDDM, and recurrent UTIs presented to the ED with altered mental status. workup essentially negative--except positive for UTI treated with antibiotics Neurology followed CT head negative 2--- for acute CVA Cardiology consultation also taken for--- abnormal EKG--- echo was essentially okay Patient stable for discharge Had discussed with patient's daughter yesterday in detail--- would like to take her home Medications reconciled Follow-up in office 1 week Discussed with nursing staff also Condition: Stable - Instructions Referrals: Hodan Richardson MD [Primary Care Provider] - - Home Medications Comprehensive Discharge Medication List: Ambulatory Orders Aspirin [ASA -] 81 mg PO DAILY 02/02/17 Calcium Carbonate [Calcium] 500 mg PO BID 02/02/17 Folic Acid 1 mg PO DAILY 02/02/17 Furosemide [Lasix] 40 mg PO DAILY 02/02/17 Metformin HCl [Metformin HCl ER] 500 mg PO BID 02/02/17 Multivitamin [Poly-Vitamin] 1 tab PO DAILY 02/02/17 Rosuvastatin Calcium [Crestor] 5 mg PO HS 02/02/17 Memantine HCl/Donepezil HCl [Namzaric 28 mg-10 mg Capsule] 1 tab PO DAILY Memantine HCl [Namenda -] 10 mg PO BID tablet 01/09/18 Rosuvastatin [Crestor -] 5 mg PO HS tablet 01/09/18 Valsartan [Diovan] 320 mg PO DAILY tablet 01/09/18
[2018-01-09 16:57] VITALS: BP 143/78; PULSE 95; TEMP 98.1
== END 2018-01-09 17:33 | disposition home or self-care (01) ==
LOC: JER 14:01 → INTOOBSV 18:13 → JERBED 18:13 → J8W 20:11
PROVIDERS: ADMIT Internal Medicine; ATTEND Internal Medicine
PROC: 3E03329 Introduction of Other Anti-infective into Peripheral Vein, Percutaneous Approach (ICD-10-PCS; principal; 2018-01-06)
PROC: 3E033GC Introduction of Other Therapeutic Substance into Peripheral Vein, Percutaneous Approach (ICD-10-PCS; 2018-01-06)
PROC: 3E013GC Introduction of Other Therapeutic Substance into Subcutaneous Tissue, Percutaneous Approach (ICD-10-PCS; 2018-01-06)
DX: R41.82 Altered mental status, unspecified (principal); E87.2 Acidosis; I10 Essential (primary) hypertension; E78.5 Hyperlipidemia, unspecified; E11.9 Type 2 diabetes mellitus without complications; G30.9 Alzheimer's disease, unspecified; F02.80 Dementia in other diseases classified elsewhere, unspecified severity, without behavioral disturbance, psychotic disturbance, mood disturbance, and anxiety; Z87.440 Personal history of urinary (tract) infections; Z79.82 Long term (current) use of aspirin; Z79.84 Long term (current) use of oral hypoglycemic drugs
CPT/HCPCS: 36415; 70450-TC; 71045-TC-FY; 80053; 81003; 82550; 82607; 82962; 82977; 83036; 83605; 83735; 84100; 84443; 84484; 85025; 85610; 85651; 85730; 86140; 86593; 87086; 87186; 93005; 93010; 93306-TC; 95816; 96365; 96372; 96375; 96376; 97116-GP; 97162-GP; 99284-25; G0378; J1644; J7030